=== PATIENT | female | born 1955 | race Caucasian/White ===

== ENCOUNTER 2019-02-18 15:14 | Emergency (ER) | payer MEDICAID ==
[~2019-02-18] VITALS: Ht 165.1 cm; Wt 63.5 kg
[2019-02-18 15:18] VITALS: Ht 165.1 cm; Wt 63.5 kg
[2019-02-18 17:19] VITALS: BP 156/83
== END 2019-02-18 17:51 | disposition home or self-care (01) ==
LOC: ED 15:14
DX: R42 Dizziness and giddiness (principal); R51 Headache; E03.9 Hypothyroidism, unspecified; R00.2 Palpitations; R11.0 Nausea
CPT/HCPCS: 82962; J1885; J8597; Q0162